=== PATIENT | female | born 1980 | race African-American/Black ===

== ENCOUNTER 2023-02-13 13:10 | Emergency (ER) | payer SELFPAY ==
[~2023-02-13] VITALS: Ht 157.5 cm; Wt 40.8 kg
[2023-02-13] MEDS ORDERED: SODIUM CHLORIDE 0.9% 1000ML 1,000 ML IV STA ×2 (13:23→16:31)
[2023-02-13] MEDS ORDERED: ONDANSETRON HCL INJ 2MG/ML 2ML 2 MG/ML VIAL IV STA (13:23)
[2023-02-13 13:55] LABS: BASOPHILS % 0.6 % (0.0-1.0); HEMATOCRIT 42.5 % (34.2-44.1); HEMOGLOBIN 13.2 g/dL (12.0-16.0); LYMPHOCYTES % 15.3 % (18.0-39.1); MEAN CORPUSCULAR HGB CONC 31.1 g/dL (31-35); MEAN CORPUSCULAR VOLUME 83.8 fL (81-99); MONOCYTES # (AUTO) 0.3 (0.2-0.8); MONOCYTES % 4.9 % (4.4-11.3); NEUTROPHILS # (AUTO) 5.2 (2.1-6.9); NEUTROPHILS % 78.9 % (38.7-80.0); PLATELET COUNT 297 x10e3/uL (140-360); RED BLOOD COUNT 5.07 x10e6/uL (3.6-5.1); RED CELL DISTRIBUTION WIDTH 16.1 % (11.7-14.4)
[2023-02-13 15:02] LABS: CLARITY,URINE HAZY (CLEAR); COLOR,URINE YELLOW (YELLOW); KETONES,URINE >=160 (NEGATIVE); LEUKOCYTE ESTERASE ,URINE NEGATIVE (NEGATIVE); NITRITE,URINE NEGATIVE (NEGATIVE); PROTEIN,URINE DIPSTICK 2+ (NEGATIVE); URINE UROBILINOGEN 0.2 mg/dL (0.2 - 1)
[2023-02-13 15:03] LABS: BACTERIA,URINE FEW /HPF; EPITHELIAL CELLS,URINE FEW /LPF; RBC,URINE >50 /HPF (0-5)
[2023-02-13 15:09] LABS: ALANINE AMINOTRANSFERASE 15 IU/L (0-55); ALBUMIN 4.1 g/dL (3.5-5.0); ALBUMIN/GLOBULIN RATIO 0.9 (0.8-2.0); ALKALINE PHOSPHATASE 87 IU/L (40-150); ANION GAP 19.1 mmol/L (8-16); BLOOD UREA NITROGEN 24 mg/dL (7-26); BUN/CREATININE RATIO 22 (6-25); CALCIUM 9.5 mg/dL (8.4-10.2); CARBON DIOXIDE 26 mmol/L (22-29); CHLORIDE 95 mmol/L (98-107); CREATININE, SERUM 1.09 mg/dL (0.57-1.11); GLUCOSE 400 mg/dL (74-118); LIPASE 22 U/L (8-78); MAGNESIUM 2.1 MG/DL (1.3-2.1); POTASSIUM 4.1 mmol/L (3.5-5.1); SODIUM 136 mmol/L (136-145)
[2023-02-13] MEDS ORDERED: IOPAMIDOL 370 MG/ML 100 ML INFUS..BTL INJ ONE (15:17)
[2023-02-13 15:29] LABS: AMPHETAMINES SCREEN,URINE NEGATIVE (NEGATIVE); BENZODIAZEPINES SCREEN,URINE NEGATIVE (NEGATIVE); PHENCYCLIDINE SCREEN,URINE NEGATIVE (NEGATIVE)
[2023-02-13] MEDS ORDERED: INSULIN REGULAR, HUMAN 100 UNIT/1 ML IV ONE (16:45)
[2023-02-13] MEDS ORDERED: CEFUROXIME250 MG PO (16:48)
[2023-02-13] MEDS ORDERED: ONDANSETRON ODT4 MG PO (16:48)
== END 2023-02-13 18:02 | disposition home or self-care (01) ==
LOC: ER 13:20
DX: R11.2 Nausea with vomiting, unspecified (principal); N39.0 Urinary tract infection, site not specified; E11.65 Type 2 diabetes mellitus with hyperglycemia; I10 Essential (primary) hypertension; F14.10 Cocaine abuse, uncomplicated; F12.10 Cannabis abuse, uncomplicated; R94.31 Abnormal electrocardiogram [ECG] [EKG]
CPT/HCPCS: 36415; 71045; 74177; 80053; 80307; 81001; 82948; 83690; 83735; 84484; 84702; 85025; 87086; 93005; 99284; C9113; J2405; J7030; Q9967

== ENCOUNTER 2023-05-27 02:13 | Inpatient (IN) | payer SELFPAY ==
[2023-05-27] VITALS (22 sets, daily range): BP systolic 93–196; BP diastolic 68–139; PULSE 100–117; RESP 10–21; TEMP 97.3–98.4; O2SAT 97–100
[~2023-05-27] VITALS: Ht 157.5 cm; Wt 46.4 kg
[~2023-05-27 02:13] MED LIST: CEFUROXIME250 MG PO; ONDANSETRON ODT4 MG PO
[2023-05-27 02:59] LABS: HEMOGLOBIN 11.2 g/dL (12.0-16.0); LYMPHOCYTES # (AUTO) 1.2 (1.0-3.2); LYMPHOCYTES % 18.2 % (18.0-39.1); MEAN CORPUSCULAR HEMOGLOBIN 26.4 pg (28-32); MEAN CORPUSCULAR VOLUME 82.4 fL (81-99); MONOCYTES # (AUTO) 0.6 (0.2-0.8); MONOCYTES % 9.4 % (4.4-11.3); NEUTROPHILS # (AUTO) 4.6 (2.1-6.9); NEUTROPHILS % 72.1 % (38.7-80.0); PLATELET COUNT 322 x10e3/uL (140-360); RED BLOOD COUNT 4.25 x10e6/uL (3.6-5.1); RED CELL DISTRIBUTION WIDTH 15.5 % (11.7-14.4)
[2023-05-27] MEDS ORDERED: INSULIN REGULAR, HUMAN 100 UNIT/1 ML IV ONE (03:00)
[2023-05-27] MEDS ORDERED: LACTATED RINGER'S 1,000 ML INJ ONE (03:00)
[2023-05-27 03:12] LABS: ALBUMIN 4.1 g/dL (3.5-5.0); ALBUMIN/GLOBULIN RATIO 0.9 (0.8-2.0); ANION GAP 25.4 mmol/L (8-16); CALCIUM 9.8 mg/dL (8.4-10.2); CREATININE, SERUM 2.06 mg/dL (0.57-1.11); POTASSIUM 5.4 mmol/L (3.5-5.1)
[2023-05-27 04:14] LABS: ABG HCO3 33 mmol/L (22-26); ABG PCO2 43 mmHg (35-45); ABG PO2 86 mmHg (80-105); ABG TCO2 35
[2023-05-27] MEDS ORDERED: SODIUM CHLORIDE 0.9% 1000ML 1,000 ML IV SCH ×2 (04:15→15:00)
[2023-05-27] MEDS ORDERED: ONDANSETRON HCL INJ 2MG/ML 2ML 2 MG/ML VIAL IV PRN (04:30)
[2023-05-27] MEDS: SODIUM CHLORIDE 0.9% 1000ML 1,000 ML IV SCH ×2 (04:30→09:13)
[2023-05-27 06:09] LABS: CLARITY,URINE CLEAR (CLEAR); COLOR,URINE YELLOW (YELLOW)
[2023-05-27 06:10] LABS: KETONES,URINE NEGATIVE (NEGATIVE); LEUKOCYTE ESTERASE ,URINE NEGATIVE (NEGATIVE); NITRITE,URINE NEGATIVE (NEGATIVE); PROTEIN,URINE DIPSTICK 2+ (NEGATIVE); URINE UROBILINOGEN 0.2 mg/dL (0.2 - 1)
[2023-05-27] MEDS ORDERED: DEXTROSE 50% SYRINGE 50 ML IV PRN ×2 (06:15→14:15)
[2023-05-27 06:35] LABS: BACTERIA,URINE FEW /HPF; EPITHELIAL CELLS,URINE FEW /LPF; RBC,URINE 0-5 /HPF (0-5); URIC ACID CRYSTALS,URINE RARE (FEW); WBC,URINE (MAN) 0-5 /HPF (0-5)
[2023-05-27 08:39] LABS: CALCIUM 9.5 mg/dL (8.4-10.2); CHOL/HDL RATIO 6.2 (3.0-3.6); CREATININE, SERUM 1.17 mg/dL (0.57-1.11)
[2023-05-27 09:00] LABS: THYROID STIMULATING HORMONE 0.795 uIU/mL (0.350-4.940)
[2023-05-27] MEDS ORDERED: INSULIN GLARGINE 100 UNITS/ML VIAL SQ SCH ×2 (09:00→21:00)
[2023-05-27] MEDS: INSULIN REGULAR, HUMAN 100 UNIT/1 ML SQ SCH ×2 (09:14→12:31)
[2023-05-27] MEDS: LISINOPRIL 10 MG TAB PO SCH (11:32)
[2023-05-27] MEDS: HYDRALAZINE HCL 20 MG/ML VIAL IV PRN (11:33)
[2023-05-27] MEDS ORDERED: POTASSIUM CHLORIDE 20MEQ/100ML 100 ML IV ONE ×2 (11:45→14:15)
[2023-05-27] MEDS ORDERED: INSULIN REGULAR, HUMAN 3ML VL 100 UNIT in SODIUM CHLORIDE 0.9% 100 ML IV SCH ×2 (14:15)
[2023-05-27] MEDS ORDERED: D5.45%NS/KCL 20MEQ 1,000 ML IV SCH (16:00)
[2023-05-27] MEDS: D5.45%NS/KCL 20MEQ 1,000 ML IV SCH (17:52)
[2023-05-27] MEDS: ATORVASTATIN 40 MG TAB PO SCH (21:10)
[2023-05-27] MEDS ORDERED: BENZOCAINE 20% SPR 60 ML CAN MT PRN (22:30)
[2023-05-28] VITALS (13 sets, daily range): BP systolic 98–169; BP diastolic 63–111; PULSE 95–117; RESP 10–18; TEMP 98.1–98.5; O2SAT 99–100
[2023-05-28] MEDS: D5.45%NS/KCL 20MEQ 1,000 ML IV SCH ×2 (02:09→12:23)
[2023-05-28 05:08] LABS: BASOPHILS % 0.2 % (0.0-1.0); EOSINOPHILS # (AUTO) 0.1 (0.0-0.4); EOSINOPHILS % 1.6 % (0.0-6.0); HEMATOCRIT 29.5 % (34.2-44.1); HEMOGLOBIN 9.3 g/dL (12.0-16.0); LYMPHOCYTES # (AUTO) 2.5 (1.0-3.2); LYMPHOCYTES % 43.7 % (18.0-39.1); MEAN CORPUSCULAR HEMOGLOBIN 26.1 pg (28-32); MEAN CORPUSCULAR HGB CONC 31.5 g/dL (31-35); MEAN CORPUSCULAR VOLUME 82.9 fL (81-99); MONOCYTES # (AUTO) 0.5 (0.2-0.8); MONOCYTES % 8.6 % (4.4-11.3); NEUTROPHILS # (AUTO) 2.6 (2.1-6.9); NEUTROPHILS % 45.7 % (38.7-80.0); PLATELET COUNT 197 x10e3/uL (140-360); RED BLOOD COUNT 3.56 x10e6/uL (3.6-5.1); RED CELL DISTRIBUTION WIDTH 15.2 % (11.7-14.4)
[2023-05-28 05:33] LABS: ANION GAP 8.2 mmol/L (8-16); CREATININE, SERUM 0.7 mg/dL (0.57-1.11); POTASSIUM 3.2 mmol/L (3.5-5.1)
[2023-05-28] MEDS: LISINOPRIL 10 MG TAB PO SCH (08:13)
[2023-05-28] MEDS ORDERED: POTASSIUM CHLORIDE 20MEQ/100ML 200 ML IV ONE (08:30)
[2023-05-28] MEDS ORDERED: INSULIN LISPRO 100 UNIT/1 ML 3ML VIAL SQ ONE (13:45)
[2023-05-28] MEDS: INSULIN LISPRO 100 UNIT/1 ML 3ML VIAL SQ SCH ×3 (16:13→21:07)
[2023-05-28] MEDS: ATORVASTATIN 40 MG TAB PO SCH (20:55)
[2023-05-28] MEDS ORDERED: INSULIN GLARGINE 100 UNITS/ML VIAL SQ SCH (21:00)
[2023-05-29] VITALS (7 sets, daily range): BP systolic 90–186; BP diastolic 68–106; PULSE 97–112; RESP 16–18; TEMP 97.6–98.8; O2SAT 98–100
[2023-05-29] MEDS: D5.45%NS/KCL 20MEQ 1,000 ML IV SCH ×3 (01:55→19:00)
[2023-05-29 06:58] LABS: BASOPHILS % 0.2 % (0.0-1.0); EOSINOPHILS # (AUTO) 0.2 (0.0-0.4); EOSINOPHILS % 2.5 % (0.0-6.0); HEMATOCRIT 33.5 % (34.2-44.1); HEMOGLOBIN 10.4 g/dL (12.0-16.0); LYMPHOCYTES # (AUTO) 2.2 (1.0-3.2); LYMPHOCYTES % 36.7 % (18.0-39.1); MEAN CORPUSCULAR HEMOGLOBIN 26.2 pg (28-32); MEAN CORPUSCULAR VOLUME 84.4 fL (81-99); MONOCYTES # (AUTO) 0.5 (0.2-0.8); MONOCYTES % 8.6 % (4.4-11.3); NEUTROPHILS # (AUTO) 3.1 (2.1-6.9); NEUTROPHILS % 51.7 % (38.7-80.0); PLATELET COUNT 220 x10e3/uL (140-360); RED BLOOD COUNT 3.97 x10e6/uL (3.6-5.1); RED CELL DISTRIBUTION WIDTH 15.2 % (11.7-14.4)
[2023-05-29 07:35] LABS: ANION GAP 10.9 mmol/L (8-16); CALCIUM 8.3 mg/dL (8.4-10.2); CREATININE, SERUM 0.78 mg/dL (0.57-1.11); POTASSIUM 3.9 mmol/L (3.5-5.1)
[2023-05-29] MEDS: LISINOPRIL 10 MG TAB PO SCH (08:13)
[2023-05-29] MEDS: INSULIN LISPRO 100 UNIT/1 ML 3ML VIAL SQ SCH ×7 (08:18→19:30)
[2023-05-29] MEDS: ATORVASTATIN 40 MG TAB PO SCH (20:07)
[2023-05-29] MEDS: HYDRALAZINE HCL 20 MG/ML VIAL IV PRN (20:07)
[2023-05-29] MEDS ORDERED: INSULIN GLARGINE 100 UNITS/ML VIAL SQ SCH (21:00)
[2023-05-30] VITALS: BP 92/62; PULSE 117; RESP 18; TEMP 98.4; O2SAT 98
[2023-05-30] MEDS: D5.45%NS/KCL 20MEQ 1,000 ML IV SCH (02:01)
[2023-05-30 04:00] VITALS: BP 144/99; PULSE 113; RESP 18; TEMP 99.1; O2SAT 98
[2023-05-30 06:08] LABS: BASOPHILS % 0.3 % (0.0-1.0); EOSINOPHILS # (AUTO) 0.2 (0.0-0.4); EOSINOPHILS % 3.5 % (0.0-6.0); HEMOGLOBIN 9.6 g/dL (12.0-16.0); LYMPHOCYTES # (AUTO) 1.6 (1.0-3.2); LYMPHOCYTES % 25.8 % (18.0-39.1); MEAN CORPUSCULAR HEMOGLOBIN 26.4 pg (28-32); MEAN CORPUSCULAR VOLUME 85.4 fL (81-99); MONOCYTES # (AUTO) 0.5 (0.2-0.8); MONOCYTES % 7.2 % (4.4-11.3); NEUTROPHILS % 62.7 % (38.7-80.0); PLATELET COUNT 196 x10e3/uL (140-360); RED BLOOD COUNT 3.63 x10e6/uL (3.6-5.1); RED CELL DISTRIBUTION WIDTH 15.2 % (11.7-14.4)
[2023-05-30] MEDS: INSULIN LISPRO 100 UNIT/1 ML 3ML VIAL SQ SCH ×5 (07:21→17:51)
[2023-05-30 07:48] LABS: CALCIUM 8.3 mg/dL (8.4-10.2); CREATININE, SERUM 0.74 mg/dL (0.57-1.11)
[2023-05-30 08:03] VITALS: BP 140/88; PULSE 115; RESP 18; TEMP 98.7; O2SAT 96
[2023-05-30] MEDS: LISINOPRIL 10 MG TAB PO SCH (08:29)
[2023-05-30 13:12] VITALS: BP 192/106; PULSE 109; RESP 18; TEMP 98.1; O2SAT 100
[2023-05-30] MEDS: HYDRALAZINE HCL 20 MG/ML VIAL IV PRN (13:57)
[2023-05-30] MEDS ORDERED: LISINOPRIL 10 MG TAB PO ONE (14:00)
[2023-05-30] MEDS ORDERED: INSULIN LISPRO 100 UNIT/1 ML 3ML VIAL SQ SCH (16:30)
[2023-05-30 16:49] VITALS: BP 106/65; PULSE 110; RESP 18; TEMP 98.7; O2SAT 100
[2023-05-30] MEDS ORDERED: ATORVASTATIN CA40 MG PO (17:15)
[2023-05-30] MEDS ORDERED: ZESTRIL20 MG PO (17:15)
[2023-05-30] MEDS ORDERED: TRESIBA FL100 UNIT/1 SC (17:15)
[2023-05-30] MEDS ORDERED: INSULIN GLARGINE 100 UNITS/ML VIAL SQ SCH (21:00)
[2023-05-31] MEDS ORDERED: LISINOPRIL 10 MG TAB PO SCH (09:00)
[2023-06-02] MEDS ORDERED: MIRALAX17 GM PO (05:12)
== END 2023-05-30 18:05 | disposition home or self-care (01) | DRG 637 ==
LOC: ER 02:24 → ERHOLD 04:24 → ICU 06:26 → MED/SURG 05-28 21:30
PROVIDERS: ADMIT Internal Medicine; ATTEND Internal Medicine
PROC: 02HV33Z Insertion of Infusion Device into Superior Vena Cava, Percutaneous Approach (ICD-10-PCS; principal; 2023-05-27)
DX: E11.65 Type 2 diabetes mellitus with hyperglycemia (principal); E11.10 Type 2 diabetes mellitus with ketoacidosis without coma; N17.9 Acute kidney failure, unspecified; R64 Cachexia; Z68.1 Body mass index [BMI] 19.9 or less, adult; E87.5 Hyperkalemia; I10 Essential (primary) hypertension; R00.0 Tachycardia, unspecified; E86.0 Dehydration; E87.6 Hypokalemia; Z87.891 Personal history of nicotine dependence; Z91.199 Patient's noncompliance with other medical treatment and regimen due to unspecified reason; Z79.4 Long term (current) use of insulin; Z20.822 Contact with and (suspected) exposure to COVID-19
CPT/HCPCS: 36415; 36569; 36600; 71045; 80048; 80053; 80061; 81001; 82805; 82948; 83036; 83735; 84443; 85025; 93005; 94799; 96372; 97139; 99284; J1815; J3480; J7030; J7050

== ENCOUNTER 2024-05-30 15:08 | Emergency (ER) | payer OTHER ==
[~2024-05-30] VITALS: Ht 157.5 cm; Wt 53.5 kg
[~2024-05-30 15:08] MED LIST changes: +ATORVASTATIN CA40 MG PO; +CEPHALEXIN500 MG PO; +DIAZEPAM5 MG PO; +Docusate Sodium PO; +FEROSUL325 MG PO; +INSULIN DEGLUDEC SQ; +LABETALOL HCL100 MG PO; +METFORMIN HCL500 MG PO; +MIRALAX17 GM PO; +NIFEDIPINE ER30 M1 PO; +NOVOLOG100 UNIT/1 SC; +PANTOPRAZOLE SO40 MG PO; +TRESIBA FL100 UNIT/1 SC; +ZESTRIL20 MG PO; +ZITHROMAX500 MG PO
[2024-05-30 15:18] VITALS: TEMP 98.6
[2024-05-30 15:35] LABS: BASOPHILS % 0.3 % (0.0-1.0); HEMATOCRIT 45.4 % (34.2-44.1); HEMOGLOBIN 15.6 g/dL (12.0-16.0); LYMPHOCYTES # (AUTO) 1.3 (1.0-3.2); LYMPHOCYTES % 8.7 % (18.0-39.1); MEAN CORPUSCULAR HGB CONC 34.4 g/dL (31-35); MONOCYTES # (AUTO) 0.5 (0.2-0.8); MONOCYTES % 3.5 % (4.4-11.3); NEUTROPHILS # (AUTO) 13.3 (2.1-6.9); NEUTROPHILS % 87.2 % (38.7-80.0); PLATELET COUNT 340 x10e3/uL (140-360); RED BLOOD COUNT 4.88 x10e6/uL (3.6-5.1); RED CELL DISTRIBUTION WIDTH 13.2 % (11.7-14.4); WHITE BLOOD COUNT 15.23 x10e3/uL (4.8-10.8)
[2024-05-30 15:52] LABS: ALBUMIN 4.4 g/dL (3.5-5.0); ALBUMIN/GLOBULIN RATIO 0.9 (0.8-2.0); ANION GAP 20.6 mmol/L (8-16); BILIRUBIN,TOTAL 0.7 mg/dL (0.2-1.2); CALCIUM 10.2 mg/dL (8.4-10.2); CREATININE, SERUM 1.3 mg/dL (0.57-1.11); POTASSIUM 3.6 mmol/L (3.5-5.1); TOTAL PROTEIN 9.5 g/dL (6.5-8.1)
[2024-05-30 16:04] LABS: BILIRUBIN,URINE NEGATIVE (NEGATIVE); CLARITY,URINE SL CLOUDY (CLEAR); COLOR,URINE YELLOW (YELLOW); GLUCOSE, URINE >=1000 (NEGATIVE); KETONES,URINE 2+ (NEGATIVE); LEUKOCYTE ESTERASE ,URINE SMALL (NEGATIVE); NITRITE,URINE NEGATIVE (NEGATIVE); PH,URINE 6.5 (5 - 7); PROTEIN,URINE DIPSTICK 2+ (NEGATIVE); URINE UROBILINOGEN 0.2 mg/dL (0.2 - 1)
[2024-05-30 16:05] LABS: AMPHETAMINES SCREEN,URINE NEGATIVE (NEGATIVE); BENZODIAZEPINES SCREEN,URINE NEGATIVE (NEGATIVE); CANNABINOIDS SCREEN,URINE POSITIVE (NEGATIVE); METHADONE SCREEN, URINE NEGATIVE (NEGATIVE); OPIATES SCREEN,URINE NEGATIVE (NEGATIVE); PHENCYCLIDINE SCREEN,URINE NEGATIVE (NEGATIVE)
[2024-05-30 16:19] LABS: AMORPHOUS SEDIMENT,URINE MODERATE (FEW); BACTERIA,URINE MODERATE /HPF; EPITHELIAL CELLS,URINE MODERATE /LPF; TRANSITIONAL EPI CELLS,URINE MODERATE
[2024-05-30 16:20] LABS: TRICHOMONAS,URINE MODERATE
[2024-05-30] MEDS ORDERED: CEFDINIR300 MG PO (16:53)
[2024-05-30] MEDS: LACTATED RINGER'S 1,000 ML INJ ONE ×2 (17:10)
[2024-05-30] MEDS: INSULIN REGULAR, HUMAN 100 UNIT/1 ML IV ONE (17:14)
[2024-05-30] MEDS: HYDRALAZINE HCL 20 MG/ML VIAL IV ONE (17:17)
[2024-05-30 19:27] VITALS: PULSE 114; RESP 18
[2024-05-30 22:33] LABS: ANION GAP 18.7 mmol/L (8-16); CALCIUM 8.7 mg/dL (8.4-10.2); CREATININE, SERUM 0.8 mg/dL (0.57-1.11)
[2024-05-30 22:37] LABS: POTASSIUM 3.7 mmol/L (3.5-5.1)
[2024-05-30 23:26] VITALS: BP 171/88; PULSE 74; RESP 20; TEMP 98.1; O2SAT 98
== END 2024-05-30 22:55 | disposition home or self-care (01) ==
LOC: ER 15:31
DX: R11.2 Nausea with vomiting, unspecified (principal); E11.65 Type 2 diabetes mellitus with hyperglycemia; N39.0 Urinary tract infection, site not specified; I10 Essential (primary) hypertension; E78.5 Hyperlipidemia, unspecified; F12.10 Cannabis abuse, uncomplicated
CPT/HCPCS: 36415; 70450; 80048; 80053; 80307; 81001; 82948; 84702; 85025; 99284; J0360; J0696; J7121